=== PATIENT | female | born 1955 | race Caucasian/White ===

== ENCOUNTER → 2023-09-15 | Outpatient (CLI) | payer OTHER ==
[2023-09-15 16:33] LABS: ALBUMIN 4.1 g/dL (3.5-5.0); BILIRUBIN,TOTAL 0.3 mg/dL (0.2-1.0); CREATININE 0.8 mg/dL (0.5-1.0); POTASSIUM 4.4 mmol/L (3.5-5.1); TOTAL PROTEIN, SERUM 7.3 g/dL (6.0-8.3)
== END | disposition home or self-care (01) ==
LOC: LAB 15:38
PROVIDERS: ATTEND Student in an Organized Health Care Education/Training Program
DX: I10 Essential (primary) hypertension (principal); R07.9 Chest pain, unspecified
CPT/HCPCS: 36415; 80053

== ENCOUNTER → 2024-05-28 | Outpatient (CLI) | payer OTHER ==
--- NOTE | 2024-06-02 08:40 | HMCSR ---
APPROVED REPORT EXAM: Two-dimensional and M-mode echocardiogram with Doppler and color Doppler. INDICATION ICD: I47.1 Supraventricular tachycardia 2D Dimensions IVSd0.7 (0.7-1.1cm)LVEF(%)68.2 (>50%)LVEF(%, simp.)64 % LVDd3.7 (3.8-5.6cm)FS(%)37 %LA ESV INDEX (BP)16.32 mL/m2 PWd1.0 (0.7-1.1cm)LA (2D)3.5 (1.6-4.0cm) IVSs1.0 cmAo Root(2D)3.1 (2.0-3.7cm) LVDs2.3 (2.5-4.0cm)LVOT diam1.6 (1.8-2.4cm) PWs1.0 cmIVC diam1.5 cm M-Mode Dimensions EPSS0.6 cm LA (MM)3.5 (1.6-4.0cm) Ao Root(MM)3.2 (2.0-3.7cm) Aortic Valve AoV Vmax0.9 m/[place] Peak GR3.1 mmHgLVOT Vmax0.8 m/s AoV VTI0.2 mAo Mean GR1.9 mmHgLVOT VTI0.17 m CINDI (VMAX)1.7 cm2AVA (VTI) 1.7 cm2 Mitral Valve MV E Vmax94.8 cm/sDECEL Eiyd946 ms MV A Vmax93.9 cm/sP 1/2 T83 ms E/A ratio1.0MVA (PHT)2.6 cm2 TDI E/E' Ucvcru75.9E/E' Ersotla02.5 Medial E' Peak V8.00 cm/sLateral E' Peak V7.00 cm/s Pulmonary Valve PV Vmax0.6 m/s Tricuspid Valve TR Vmax1.9 m/sRAP (EST) 3 npAcMXLO95.2 mmHg TR Peak GR15.2 mmHg Left Ventricle The left ventricle is normal size. There is normal left ventricular wall thickness. LVEF is 60-65%. T he left ventricular diastolic function is normal. Right Ventricle The right ventricle is normal size. The right ventricular systolic function is normal. Atria The left atrium size is normal. . The right atrium size is normal. Aortic Valve The aortic valve is normal in structure. No aortic regurgitation is present. There is no aortic valvu lar stenosis. Mitral Valve The mitral valve is mildly thickened. Mitral valve leaflets open well. There is trace of mitral valve regurgitation noted. There is no mitral valve stenosis. Tricuspid Valve The tricuspid valve is normal in structure. There is trace of tricuspid valve regurgitation noted. Pulmonic Valve The pulmonary valve is normal in structure. There is no pulmonic valvular regurgitation. Great Vessels The aortic root is normal in size. The IVC is normal in size and collapses >50% with inspiration. Pericardium There is no pericardial effusion. Conclusion The left ventricle is normal size. LVEF is 60-65%. The left ventricular diastolic function is normal. The right ventricle is normal size. The right ventricular systolic function is normal. The left atrium size is normal. The right atrium size is normal. No valvular pathology. There is no pericardial effusion.
== END | disposition home or self-care (01) ==
LOC: SHCH 10:34
PROVIDERS: ATTEND Student in an Organized Health Care Education/Training Program
DX: I34.0 Nonrheumatic mitral (valve) insufficiency (principal); I47.10 Supraventricular tachycardia, unspecified
CPT/HCPCS: 93306